=== PATIENT | male | born 1990 | race Caucasian/White ===

== ENCOUNTER 2018-10-22 13:53 | Emergency (ER) | payer BC, OTHER ==
[~2018-10-22] VITALS: Ht 170.2 cm; Wt 84.5 kg
[2018-10-22 13:53] VITALS: BP 133/80
[2018-10-22] MEDS ORDERED: KEFL500C17 PO (14:26)
[2018-10-22] MEDS ORDERED: IBUP-1022 PO (14:26)
== END 2018-10-22 14:35 | disposition home or self-care (01) ==
LOC: M ED 13:53
DX: J02.0 Streptococcal pharyngitis (principal); Z87.891 Personal history of nicotine dependence